=== PATIENT | female | born 1960 | race American Indian/Alaskan Native ===

== ENCOUNTER 2020-03-24 11:47 | Emergency (ER) | payer SELFPAY ==
--- NOTE | 2020-03-24 11:59 | Event Note ---
ED Screening Note Date of service: 03/24/20 Time: 11:55 ED Screening Note: 59-year-old -[place] female presents to the emergency room for insomnia x2 weeks and this morning she woke up with short left quadrant pain worse with deep breath. Past medical history of hypertension. No nausea no vomiting. Last seen at [facility]. This initial assessment/diagnostic orders/clinical plan/treatment(s) is/are subject to change based on patients health status, clinical progression and re- assessment by fellow clinical providers in the ED. Further treatment and workup at subsequent clinical providers discretion. Patient/guardian urged not to elope from the ED as their condition may be serious if not clinically assessed and managed. Initial orders include:
[2020-03-24 12:36] LABS: Bacteria,Urine 1+ /HPF (Negative); Bilirubin,Urine NEG (Negative); Blood,Urine MOD (Negative); Color,Urine Yellow (Yellow); Mucus,Urine FEW /HPF; Urobilinogen,Urine < 2.0 mg/dL (<2.0)
[2020-03-24 12:50] LABS: Basophils % (Auto) 0.6 % (0.0-1.8); Eosinophils % (Auto) 0.2 % (0.0-4.3); Hematocrit 39.9 % (30.3-42.9); Hemoglobin 13.4 gm/dl (10.1-14.3); Lymphocytes # (Auto) 1.6 K/mm3 (1.2-5.4); Lymphocytes % (Auto) 17.5 % (13.4-35.0); Mean Corpuscular HGB Conc 34 % (30-34); Mean Corpuscular Volume 87 fl (79-97); Monocytes # (Auto) 0.5 K/mm3 (0.0-0.8); Monocytes % (Auto) 6.1 % (0.0-7.3); Platelet Count 232 K/mm3 (140-440); Red Blood Count 4.57 M/mm3 (3.65-5.03); Red Cell Distribution Width 14.2 % (13.2-15.2)
[2020-03-24 13:27] LABS: Alanine Aminotransferase 13 units/L (7-56); Albumin 4.5 g/dL (3.9-5); BUN/Creatinine Ratio 13; Blood Urea Nitrogen 10 mg/dL (7-17); Calcium 9.5 mg/dL (8.4-10.2); Hemolysis Index 3
--- NOTE | 2020-03-24 16:27 | Cat Scan Report ---
CT ABDOMEN AND PELVIS WITH CONTRAST HISTORY: Left side abdominal pain with hematuria COMPARISON: None TECHNIQUE: Routine abdominal and pelvic CT exam performed following intravenous contrast administrat ion.. All CT scans at this location are performed using CT dose reduction for ALARA by means of autom ated exposure control. FINDINGS: CT ABDOMEN: Lung Bases: No significant abnormality. Liver: There is a 5.0 x 4.8 cm hypoattenuating mass versus fluid collection in the superolateral righ t hepatic lobe. Remainder the liver appears unremarkable. Biliary: No significant abnormality. Spleen: No significant abnormality. Unenlarged. Pancreas: No significant abnormality. Adrenals: No significant abnormality. Kidneys: No acute findings. Tiny simple cysts in the left renal cortex. Lymphatics: No lymphadenopathy. Vasculature: No significant abnormality. Bowel/Peritoneum: No significant abnormality. No free air. No free fluid. Normal appendix. CT PELVIC: : The uterus is surgically absent. Lymphatics: No lymphadenopathy. Osseous Structures: No aggressive appearing osseous lesions. There is moderate degenerative disc dise ase at L5-S1 in the lumbar spine. Additional Findings: None IMPRESSION: 1. Complex mass versus fluid collection in the superolateral right hepatic dome. Differential conside rations would include metastatic disease, primary hepatic neoplasm, and intrahepatic abscess. 2. No additional acute findings. Signer Name: Jhon Eldridge MD Signed: 03/24/2020 4:23 PM Workstation Name: [id number]
[2020-03-24] MEDS ORDERED: ACETAMINOPHEN 325 MG TAB PO ONE (18:20)
[2020-03-24] MEDS ORDERED: amLODIPine 5 MG TAB PO ONE (23:41)
--- NOTE | 2020-03-24 23:41 | Emergency Department Report ---
ED General Adult HPI - General Chief complaint: Abdominal Pain Stated complaint: SIDE PAIN; INSOMNIA PUI?: No Time Seen by Provider: 03/24/20 23:25 Source: patient, RN notes reviewed Mode of arrival: Ambulatory Limitations: No Limitations - History of Present Illness Initial comments: The patient was evaluated in the emergency department for symptoms described in the history of present illness. He/she was evaluated in the context of the global COVID-19 pandemic, which necessitated consideration that the patient might be at risk for infection with the virus that causes COVID-19. Institutional protocols and algorithms that pertain to the evaluation of patients at risk for COVID-19 are in a state of rapid change based on information released by regulatory bodies including the CDC and federal and state organizations. These policies and algorithms were followed during the patient's care in the emergency department. Please note that these policies, procedures and recommendations changed on a rapid basis. The patient is a 59-year-old female. She is not known to myself previously. She moved here from the [facility] approximately 1 month ago. She does not have a local primary care doctor. She has a history of hypertension, and distant history of hysterectomy. She presents to the ER today with a main complaint of nontraumatic left upper quadrant pain, which increases with deep inspiration and palpation. She denies headache, neck pain, exertional shortness of breath, vomiting, diaphoresis, loss of taste, loss of smell, dysuria, denies right-sided abdominal pain, and lower quadrant abdominal pain. She has not really taken anything for pain at this time. She states that she believes she has had a colonoscopy, although not recently. She is not had a Pap smear, as she has a history of hysterectomy. She also reports having had a mammogram in 2018. She denies fever, and unintentional weight loss. She also describes painless difficulty sleeping over the past 2 weeks. -: Gradual, days(s), week(s) Location: abdomen Radiation: non-radiation Severity scale (0 -10): 8 Quality: aching Consistency: intermittent Improves with: rest Worsens with: other (Deep inspiration) - Related Data Previous Rx's Medication Instructions Recorded Last Taken Type Acetaminophen [Non-Aspirin Extra 500 mg PO Q6HR PRN #30 tablet 03/25/20 Unknown Rx Strength] Albuterol Sulfate [Proair 90 mcg IH Q4HR PRN #2 aer.[email or web address] 03/25/20 Unknown Rx Respiclick] Amoxicillin [Trimox CAP] 1,000 mg PO Q8H #28 capsule 03/25/20 Unknown Rx Azithromycin [Zithromax TAB] 250 mg PO QDAY #4 tablet 03/25/20 Unknown Rx Ibuprofen [Motrin] 600 mg PO Q8H PRN #30 tablet 03/25/20 Unknown Rx Allergies Allergy/AdvReac Type Severity Reaction Status Date / Time Unable to Assess Allergy Verified 03/25/20 01:55 ED Review of Systems ROS: Stated complaint: SIDE PAIN; INSOMNIA Other details as noted in HPI Constitutional: denies: fever Eyes: denies: eye discharge ENT: denies: congestion Respiratory: see HPI. denies: cough Cardiovascular: denies: syncope Gastrointestinal: abdominal pain. denies: hematemesis, melena, hematochezia Genitourinary: denies: dysuria Musculoskeletal: back pain Neurological: weakness Hematological/Lymphatic: denies: easy bleeding ED Past Medical Hx - Social History Smoking Status: Never Smoker Substance Use Type: None - Medications Home Medications: Home Medications Medication Instructions Recorded Confirmed Last Taken Type Acetaminophen [Non-Aspirin Extra 500 mg PO Q6HR PRN #30 tablet 03/25/20 Unknown Rx Strength] Albuterol Sulfate [Proair 90 mcg IH Q4HR PRN #2 aer.pow.[email or web address] 03/25/20 Unknown Rx Respiclick] Amoxicillin [Trimox CAP] 1,000 mg PO Q8H #28 capsule 03/25/20 Unknown Rx Azithromycin [Zithromax TAB] 250 mg PO QDAY #4 tablet 03/25/20 Unknown Rx Ibuprofen [Motrin] 600 mg PO Q8H PRN #30 tablet 03/25/20 Unknown Rx ED Physical Exam - General Limitations: No Limitations General appearance: alert, in no apparent distress - Head Head exam: Present: atraumatic, normocephalic - Eye Eye exam: Present: normal appearance, EOMI. Absent: conjunctival injection, nystagmus - ENT ENT exam: Present: normal exam, normal orophraynx, mucous membranes moist, normal external ear exam - Neck Neck exam: Present: normal inspection, full ROM. Absent: tenderness, meningismus - Respiratory Respiratory exam: Present: normal lung sounds bilaterally. Absent: respiratory distress, wheezes, rales, rhonchi, stridor, decreased breath sounds - Cardiovascular Cardiovascular Exam: Present: regular rate, normal rhythm, normal heart sounds. Absent: bradycardia, tachycardia, irregular rhythm, systolic murmur, diastolic murmur, rubs, gallop - GI/Abdominal GI/Abdominal exam: Present: soft, normal bowel sounds. Absent: distended, tenderness, guarding, rebound, rigid, pulsatile mass - Extremities Exam Extremities exam: Present: normal inspection, full ROM, other (2+ pulses noted in the bilateral upper and lower extremities. There is no palpable cord. negative Homans sign. Muscular compartments are soft. The pelvis is stable.). Absent: pedal edema, calf tenderness - Back Exam Back exam: Present: normal inspection, full ROM. Absent: tenderness, CVA tenderness (R), CVA tenderness (L), paraspinal tenderness, vertebral tenderness - Neurological Exam Neurological exam: Present: alert, oriented X3, normal gait, other (No facial droop. Tongue midline. Extraocular movements intact bilaterally. Facial sensation intact to light touch in V1, V2, V3 distribution bilaterally. 5 and a 5 strength in 4 extremities. Sensation intact to light touch in 4 extremi ties.). Absent: motor sensory deficit - Psychiatric Psychiatric exam: Present: normal affect, normal mood - Skin Skin exam: Present: warm, dry, intact, normal color. Absent: rash ED Course Vital Signs 03/24/20 03/24/20 03/25/20 11:53 18:25 01:48 Temperature 98.8 F 98.9 F Pulse Rate 109 H 89 93 H Respiratory 18 16 17 Rate Blood Pressure 171/89 Blood Pressure 191/99 [191/99] Blood Pressure 167/103 [Right] O2 Sat by Pulse 97 100 98 Oximetry 03/25/20 01:57 Temperature Pulse Rate 93 H Respiratory Rate Blood Pressure 167/103 Blood Pressure [191/99] Blood Pressure [Right] O2 Sat by Pulse Oximetry - Reevaluation(s) Reevaluation #1: 03/25/20 00:17 Differential diagnosis, including but not limited to: Pneumonia, pulmonary embolism, pleurisy, malignancy, hypertension, noncompliance Assessment and plan: 59-year-old female who presents with a primary complaint of left upper quadrant pain that has pleuritic component to it. She is not currently tachycardic, tachypneic or hypoxic. She denies travel, surgery, oral contraceptive use and leg pain and leg swelling. A CT scan of the abdomen pelvis was obtained prior to my personal evaluation of this patient, demonstrated nonspecific lesion in the right upper quadrant/liver. The patient has no fever, chills, and there is no right upper quadrant pain, tenderness, rebound or guarding. Clinically, her examination and history not suggestive of hepatic abscess. Given potential concern for malignancy, and pleuritic left upper quadrant/left lateral/inferior thoracic pain, x-ray the chest will be obtained, EKG will be obtained, and we will send a D-dimer to risk ratified patient for pulmonary embolism. Assuming no acute pulmonary embolism is identified, either through D- dimer, or through objective imaging, patient will need to follow-up with an outpatient primary care doctor for nonspecific hepatic lesion. Elevated blood pressure reviewed and appreciated. We will start Norvasc and discharged with Norvasc. Hypertension is most likely chronic. EKG fairly unremarkable. 03/25/20 02:02 Reassessed. D-dimer elevated. CT scan of the chest suggest left lower lobe infiltrate/pneumonitis. No pulmonary embolism is identified. Patient walking with a steady gait. I discussed the patient's CT scan of the chest with the interpreting radiologist, Dr. Gsaton. He advises that it is his opinion that both CT scan of the abdomen pelvis, and CT scan of the chest demonstrate left lower lobe infiltrate/pneumonitis. There is persistently a lack of pain/tenderness in the right upper quadrant. Patient observed in this ER for hours without clinical decompensation. She is suitable for trial of oral outpatient antibiotic management. She states that she takes Norvasc, and does not require a refill. Patient will be treated with Tylenol, Motrin, amoxicillin, azithromycin. She will need to follow-up with an outpatient primary care doctor for repeat checkup/evaluation. I extensively and exhaustively counseled the patient on need to follow-up for incidental pulmonary nodule, and nonspecific hepatic abnormality. I specifically advised patient that close follow-up is necessary to exclude cancer, tumor, malignancy. I also discussed the importance of antihypertensive medication compliance. ED Medical Decision Making - Lab Data Result diagrams: 03/24/20 12:26 03/24/20 12:26 Vital Signs 03/24/20 03/24/20 11:53 18:25 Temperature 98.8 F Pulse Rate 109 H 89 Respiratory 18 16 Rate Blood Pressure 171/89 Blood Pressure 191/99 [191/99] O2 Sat by Pulse 97 100 Oximetry Lab Results 03/24/20 03/24/20 03/24/20 Range/Units 12:01 12:26 12:26 WBC 8.9 (4.5-11.0) K/mm3 RBC 4.57 (3.65-5.03) M/mm3 Hgb 13.4 (10.1-14.3) gm/dl Hct 39.9 (30.3-42.9) % MCV 87 (79-97) fl MCH 29 (28-32) pg MCHC 34 (30-34) % RDW 14.2 (13.2-15.2) % Plt Count 232 (140-440) K/mm3 Lymph % (Auto) 17.5 (13.4-35.0) % Avery % (Auto) 6.1 (0.0-7.3) % Eos % (Auto) 0.2 (0.0-4.3) % Baso % (Auto) 0.6 (0.0-1.8) % Lymph # (Auto) 1.6 (1.2-5.4) K/mm3 Avery # (Auto) 0.5 (0.0-0.8) K/mm3 Eos # (Auto) 0.0 (0.0-0.4) K/mm3 Baso # (Auto) 0.0 (0.0-0.1) K/mm3 Seg Neutrophils % 75.6 H (40.0-70.0) % Seg Neutrophils # 6.7 (1.8-7.7) K/mm3 Sodium 140 (137-145) mmol/L Potassium 4.3 (3.6-5.0) mmol/L Chloride 102.0 (98-107) mmol/L Carbon Dioxide 27 (22-30) mmol/L Anion Gap 15 mmol/L BUN 10 (7-17) mg/dL Creatinine 0.8 (0.6-1.2) mg/dL Estimated GFR > 60 ml/min BUN/Creatinine Ratio 13 % Glucose 99 (65-100) mg/dL POC Glucose 99 (70-105) mg/dL Calcium 9.5 (8.4-10.2) mg/dL Total Bilirubin 0.30 (0.1-1.2) mg/dL AST 15 (5-40) units/L ALT 13 (7-56) units/L Alkaline Phosphatase 67 (35-129) units/L Total Protein 7.5 (6.3-8.2) g/dL Albumin 4.5 (3.9-5) g/dL Albumin/Globulin Ratio 1.5 % Lipase (13-60) units/L Urine Color (Yellow) Urine Turbidity (Clear) Urine pH (5.0-7.0) Ur Specific Tracy (1.003-1.030) Urine Protein (Negative) mg/dL Urine Glucose (UA) (Negative) mg/dL Urine Ketones (Negative) mg/dL Urine Blood (Negative) Urine Nitrite (Negative) Urine Bilirubin (Negative) Urine Urobilinogen (<2.0) mg/dL Ur Leukocyte Esterase (Negative) Urine WBC (Auto) (0.0-6.0) /HPF Urine RBC (Auto) (0.0-6.0) /HPF U Epithel Cells (Auto) (0-13.0) /HPF Urine Bacteria (Auto) (Negative) /HPF Urine Mucus /HPF Urine Yeast (Budding) /HPF 03/24/20 03/24/20 Range/Units 12:26 Unknown WBC (4.5-11.0) K/mm3 RBC (3.65-5.03) M/mm3 Hgb (10.1-14.3) gm/dl Hct (30.3-42.9) % MCV (79-97) fl MCH (28-32) pg MCHC (30-34) % RDW (13.2-15.2) % Plt Count (140-440) K/mm3 Lymph % (Auto) (13.4-35.0) % Avery % (Auto) (0.0-7.3) % Eos % (Auto) (0.0-4.3) % Baso % (Auto) (0.0-1.8) % Lymph # (Auto) (1.2-5.4) K/mm3 Avery # (Auto) (0.0-0.8) K/mm3 Eos # (Auto) (0.0-0.4) K/mm3 Baso # (Auto) (0.0-0.1) K/mm3 Seg Neutrophils % (40.0-70.0) % Seg Neutrophils # (1.8-7.7) K/mm3 Sodium (137-145) mmol/L Potassium (3.6-5.0) mmol/L Chloride (98-107) mmol/L Carbon Dioxide (22-30) mmol/L Anion Gap mmol/L BUN (7-17) mg/dL Creatinine (0.6-1.2) mg/dL Estimated GFR ml/min BUN/Creatinine Ratio % Glucose (65-100) mg/dL POC Glucose (70-105) mg/dL Calcium (8.4-10.2) mg/dL Total Bilirubin (0.1-1.2) mg/dL AST (5-40) units/L ALT (7-56) units/L Alkaline Phosphatase (35-129) units/L Total Protein (6.3-8.2) g/dL Albumin (3.9-5) g/dL Albumin/Globulin Ratio % Lipase 30 (13-60) units/L Urine Color Yellow (Yellow) Urine Turbidity Clear (Clear) Urine pH 8.0 H (5.0-7.0) Ur Specific Tracy 1.017 (1.003-1.030) Urine Protein 30 mg/dl (Negative) mg/dL Urine Glucose (UA) Neg (Negative) mg/dL Urine Ketones Neg (Negative) mg/dL Urine Blood Mod (Negative) Urine Nitrite Neg (Negative) Urine Bilirubin Neg (Negative) Urine Urobilinogen < 2.0 (<2.0) mg/dL Ur Leukocyte Esterase Neg (Negative) Urine WBC (Auto) 5.0 (0.0-6.0) /HPF Urine RBC (Auto) 155.0 (0.0-6.0) /HPF U Epithel Cells (Auto) 2.0 (0-13.0) /HPF Urine Bacteria (Auto) 1+ (Negative) /HPF Urine Mucus Few /HPF Urine Yeast (Budding) 1+ /HPF - EKG Data -: EKG Interpreted by Me EKG shows normal: sinus rhythm Rate: normal - EKG Data When compared to previous EKG there are: previous EKG unavailable 03/25/20 00:13 Sinus rhythm, 84 bpm, normal axis, normal intervals, QTC 394 ms. Abnormal EKG. Not a STEMI. No prior for comparison. - Radiology Data Radiology results: pending, report reviewed, image reviewed TECHNIQUE: Routine abdominal and pelvic CT exam performed following intravenous contrast administration.. All CT scans at this location are performed using CT dose reduction for ALARA by means of automated exposure control. FINDINGS: CT ABDOMEN: Lung Bases: No significant abnormality. Liver: There is a 5.0 x 4.8 cm hypoattenuating mass versus fluid collection in the superolateral right hepatic lobe. Remainder the liver appears unremarkable. Biliary: No significant abnormality. Spleen: No significant abnormality. Unenlarged. Pancreas: No sign ificant abnormality. Adrenals: No significant abnormality. Kidneys: No acute findings. Tiny simple cysts in the left renal cortex. Lymphatics: No lymphadenopathy. Vasculature: No significant abnormality. Bowel/Peritoneum: No significant abnormality. No free air. No free fluid. Normal appendix. CT P ELVIC: : The uterus is surgically absent. Lymphatics: No lymphadenopathy. Osseous Structures: No aggressive appearing osseous lesions. There is moderate degenerative disc disease at L5-S1 in the lumbar spine. Additional Findings: None IMPRESSION: 1. Complex mass versus fluid collection in the superolateral right hepatic dome. Differential considerations would include metastatic disease, moris hollis hepatic neoplasm, and intrahepatic abscess. 2. No additional acute findings. Signer Name: Jhon Eldridge MD Signed: 03/24/2020 3:23 PM Workstation Name: [id number] CTA CHEST WITH IV CONTRAST INDICATION: Pleuritic chest pain, left thorax, elevated D-dimer CONTRAST: 100 cc Omnipaque 350 IV COMPARISON: Chest x-ray tonight, CT abdomen and pelvis 03/24/2020 Three-plane MIP reconstructions were produced. All CT scans at this location are performed using CT dose reduction for ALARA by means of automated exposure control. FINDINGS: No significant axillary or chest wall lesions are seen. No mediastinal or hilar masses are noted. Visualized portions of the upper abdomen again show the complex mass in the upper portion of the right lobe of the liver described on report yesterday. No pleural effusions are seen. No obvious endobronchial lesions are noted. No pneumothorax or pneumomediastinum are seen. Right lung field is clear. Mild patchy atelectasis and possible pneumonic infiltrate are seen in the lateral aspect of the left lower lobe and slightly in the lingula. This is similar to yesterday study. In the left upper lobe posterior laterally near the major fissure a noncalcified well-defined solid 4 mm pulmonary nodule is seen. No other nodules or masses are noted. The aorta shows no aneurysmal dilatation or evidence of dissection. Moderate opacification of the pulmonary arterial system was achieved. I do not see convincing evidence of pulmonary thromboembolism. IMPRESSION: 1. No convincing evidence of pulmonary thromboembolism 2. Possible pneumonitis in the left lower lobe 3. Left upper lobe soft tissue nodule. INCIDENTAL PULMONARY NODULE RECOMMENDATIONS Solid Nodule size* <6 mm -- Single or Multiple - Low Risk Patient: No routine follow-up - High Risk Patient: Optional CT at 12 months Solid Nodule size 6-8 mm -- Single - Low Risk Patient: CT at 6-12 months, then consider CT at 18-24 months - High Risk Patient: CT at 6-12 months, then CT at 18-24 months Solid Nodule size 6-8 mm -- Multiple - Low Risk Patient: CT at 3-6 months, then consider CT at 18-24 months - High Risk Patient: CT at 3-6 months, then CT at 18-24 months Solid Nodule size >8 mm -- Single - Low Risk or High Risk Patient: Consider CT at 3 months, PET/CT, or tissue sampling Solid Nodule size >8 mm -- Multiple - Low Risk Patient: CT at 3-6 months, then consider CT at 18-24 months - High Risk Patient: CT at 3-[address], [address] at 18-24 months Subsolid Nodule (Ground glass) <6 mm - No routine follow-up Subsolid Nodule (Ground glass) >=6 mm - CT at 6-12 months to confirm persistence, then CT every 2 years until 5 years Subsolid Nodule (Part solid) <6 mm - No routine follow-up Subsolid Nodule (Part solid) >=6 mm - CT at 3-6 months to confirm persistence. If unchanged and solid component remains <6mm, annual CT should be performed for 5 years. Subsolid Nodule (Multiple) <6 mm - CT at 3-6 months. If stable, consider CT at 2 and 4 years. Subsolid Nodule (Multiple) >=6 mm - CT at 3-6 months. Subsequent management based on the most suspicious nodule(s). Note These recommendations do not apply to lung cancer screening, patients with immunosuppression, or patients with known primary cancer. Note Newly detected indeterminate nodule in persons 35 years of age or older. Persons under the age of 35 should not receive follow-up unless there is a known primary cancer. Low Risk Patient -- minimal or absent history of smoking and of other known risk factors. High Risk Patient -- history of smoking or of other known risk factors. *Dimensions are average of long and short axes, rounded to the nearest millimeter. Based on 2017 Fleischner Society Guidelines found in Radiology 2017 284:228-243. [email or web address].[email or web address] Signer Name: Chicho Gaston MD Signed: 03/25/2020 12:51 AM Workstation Name: [email or web address] Critical care attestation.: If time is entered above; I have spent that time in minutes in the direct care of this critically ill patient, excluding procedure time. ED Disposition Clinical Impression: Elevated blood pressure reading, Pleuritic pain, Liver mass, Pulmonary infiltrate Disposition: - TO HOME OR SELFCARE Is pt being admited?: No Does the pt Need Aspirin: No Condition: Stable Instructions: Abdominal Pain (ED), Chest Pain (ED), Pleurodynia, Lung Mass, Hypertension, Adult Additional Instructions: Take the pain medication, cough medication and antibiotics as directed. Please continue current outpatient blood pressure medications. Long-term complications of hypertension and elevated blood pressure include stroke, heart attack, disability, paralysis, permanent loss of quality of life. CT scan of the chest suggested left lower lobe pneumonitis/pneumonia. Take the antibiotics, cough medication, pain medication, as directed. Avoid consumption of alcohol, tobacco and smoke products. Do not take metformin medication for the next 2 days, if patient takes this medication. CT scan of the chest also suggested nonspecific pulmonary nodule. Please have your primary care doctor contact the medical records department, to obtain copy of CT scan report, and follow-up on nonemergent incidental pulmonary nodule findings. This should be done within the next month, to ensure outpatient follow-up, to exclude cancer, tumor, malignancy. CT scan of the chest, and abdomen/pelvis demonstrated nonspecific lesion/mass in the liver. Patient will need to follow-up with a primary care doctor for this within the next month, to exclude cancer, tumor, malignancy. Please have your primary care doctor contact medical records department, to obtain CT scan report, and follow-up on nonemergent incidental findings. Please return to the emergency room right away with new pain, worsening pain, migration of pain, projectile vomiting, change in mental status, confusion, inability to tolerate liquid feeds, new, worsened or different symptoms not present on the initial emergency room evaluation. [facility] is a local primary care medical practice. Dr. Tanvir Rao is a local primary care doctor. Referrals: MONTRELL RAO MD [Staff Physician] - 3-5 Days [facility] [Provider Group] - 3-5 Days
--- NOTE | 2020-03-25 00:20 | XRay Report ---
CHEST 2 VIEWS [id number] INDICATION / CLINICAL INFORMATION: pleuritic pain COMPARISON: None available. FINDINGS: SUPPORT DEVICES: None. HEART / MEDIASTINUM: No significant abnormality. LUNGS / PLEURA: Minimal linear atelectasis versus scarring is seen in the left lateral base. No defin ite acute pneumonic infiltrates are seen. No pleural effusions are obvious. No pneumothorax. ADDITIONAL FINDINGS: No significant additional findings. IMPRESSION: No significant acute abnormality Signer Name: Chicho Gaston MD Signed: 03/25/2020 12:16 AM Workstation Name: [id number]
[2020-03-25 00:30] LABS: INR 1.11 (0.87-1.13)
[2020-03-25] MEDS ORDERED: SODIUM CHLORIDE 0.9% 250ML 250 ML IV ONE (00:57)
[2020-03-25] MEDS ORDERED: KETOROLAC 30 MG/1 ML INJ IV ONE (01:43)
[2020-03-25] MEDS ORDERED: amLODIPine 5 MG TAB ONE (01:53)
--- NOTE | 2020-03-25 01:55 | Cat Scan Report ---
CTA CHEST WITH IV CONTRAST INDICATION: Pleuritic chest pain, left thorax, elevated D-dimer CONTRAST: 100 cc Omnipaque 350 IV COMPARISON: Chest x-ray tonight, CT abdomen and pelvis 03/24/2020 Three-plane MIP reconstructions were produced. All CT scans at this location are performed using CT d ose reduction for ALARA by means of automated exposure control. FINDINGS: No significant axillary or chest wall lesions are seen. No mediastinal or hilar masses are noted. Visualized portions of the upper abdomen again show the complex mass in the upper portion of t he right lobe of the liver described on report yesterday. No pleural effusions are seen. No obvious e ndobronchial lesions are noted. No pneumothorax or pneumomediastinum are seen. Right lung field is clear. Mild patchy atelectasis and possible pneumonic infiltrate are seen in the lateral aspect of the left lower lobe and slightly in the lingula. This is similar to yesterday study . In the left upper lobe posterior laterally near the major fissure a noncalcified well-defined solid 4 mm pulmonary nodule is seen. No other nodules or masses are noted. The aorta shows no aneurysmal dilatation or evidence of dissection. Moderate opacification of the pulmonary arterial system was achieved. I do not see convincing evidenc e of pulmonary thromboembolism. IMPRESSION: 1. No convincing evidence of pulmonary thromboembolism 2. Possible pneumonitis in the left lower lobe 3. Left upper lobe soft tissue nodule. INCIDENTAL PULMONARY NODULE RECOMMENDATIONS Solid Nodule size* <6 mm -- Single or Multiple - Low Risk Patient: No routine follow-up - High Risk Patient: Optional CT at 12 months Solid Nodule size 6-8 mm -- Single - Low Risk Patient: CT at 6-12 months, then consider CT at 18-24 months - High Risk Patient: CT at 6-12 months, then CT at 18-24 months Solid Nodule size 6-8 mm -- Multiple - Low Risk Patient: CT at 3-6 months, then consider CT at 18-24 months - High Risk Patient: CT at 3-6 months, then CT at 18-24 months Solid Nodule size >8 mm -- Single - Low Risk or High Risk Patient: Consider CT at 3 months, PET/CT, or tissue sampling Solid Nodule size >8 mm -- Multiple - Low Risk Patient: CT at 3-6 months, then consider CT at 18-24 months - High Risk Patient: CT at 3-6 months, then CT at 18-24 months Subsolid Nodule (Ground glass) <6 mm - No routine follow-up Subsolid Nodule (Ground glass) >=6 mm - CT at 6-12 months to confirm persistence, then CT every 2 years until 5 years Subsolid Nodule (Part solid) <6 mm - No routine follow-up Subsolid Nodule (Part solid) >=6 mm - CT at 3-6 months to confirm persistence. If unchanged and solid component remains <6mm, annual CT s hould be performed for 5 years. Subsolid Nodule (Multiple) <6 mm - CT at 3-6 months. If stable, consider CT at 2 and 4 years. Subsolid Nodule (Multiple) >=6 mm - CT at 3-6 months. Subsequent management based on the most suspicious nodule(s). Note These recommendations do not apply to lung cancer screening, patients with immunosuppression, o r patients with known primary cancer. Note Newly detected indeterminate nodule in persons 35 years of age or older. Persons under the age of 35 should not receive follow-up unless there is a known primary cancer. Low Risk Patient -- minimal or absent history of smoking and of other known risk factors. High Risk Patient -- history of smoking or of other known risk factors. *Dimensions are average of long and short axes, rounded to the nearest millimeter. Based on 2017 Fleischner Society Guidelines found in Radiology 2017 284:228-243. https://doi.org/10.1 148/radiol.1477160758 Signer Name: Chicho Gaston MD Signed: 03/25/2020 1:51 AM Workstation Name: [email or web address]
[2020-03-25] MEDS ORDERED: AMOXICILLIN 500 MG CAP PO ONE (02:02)
[2020-03-25] MEDS ORDERED: AZITHROMYCIN 250 MG TAB PO ONE (02:02)
[2020-03-25 03:05] VITALS: BP 140/92
== END 2020-03-25 03:05 | disposition home or self-care (01) ==
LOC: ED 11:47
DX: R03.0 Elevated blood-pressure reading, without diagnosis of hypertension (principal); R07.81 Pleurodynia; R91.8 Other nonspecific abnormal finding of lung field; Z79.1 Long term (current) use of non-steroidal anti-inflammatories (NSAID); Z79.2 Long term (current) use of antibiotics
CPT/HCPCS: 36415; 71046; 71275; 74177; 80053; 81001; 82962; 83690; 85025; 85379; 85610; 96374; 99285; J1885; J7050; Q9967; 93005

== ENCOUNTER 2020-09-17 10:43 | Emergency (ER) | payer SELFPAY ==
--- NOTE | 2020-09-17 11:00 | Event Note ---
ED Screening Note ED Screening Note: Patient is a 60-year-old female presents emergency room complaints of shortness of breath for 2 months She states last night the shortness of breath got worse and that is why she reported to the emergency room today She states that she was not able to sleep because laying flat makes her shortness of breath worse She denies any fever, cough, nausea, vomiting, diarrhea Past medical history of hypertension, hypercholesteremia, borderline diabetes No allergies to medicines She is a never smoker This initial assessment/diagnostic orders/clinical plan/treatment(s) is/are subject to change based on patients health status, clinical progression and re- assessment by fellow clinical providers in the ED. Further treatment and workup at subsequent clinical providers discretion. Patient/guardian urged not to elope from the ED as their condition may be serious if not clinically assessed and managed. Initial orders include: Labs, EKG, x-ray
--- NOTE | 2020-09-17 11:36 | XRay Report ---
CHEST 2 VIEWS INDICATION / CLINICAL INFORMATION: Chest Pain. COMPARISON: 03/24/20. FINDINGS: SUPPORT DEVICES: None. HEART / MEDIASTINUM: The heart size is borderline with a left ventricular configuration. Pulmonary va sculature is normal. There is mild aortic tortuosity without aneurysm. LUNGS / PLEURA: No significant pulmonary or pleural abnormality. Minimal left basilar subsegmental pa renchymal disease has resolved. No pneumothorax. ADDITIONAL FINDINGS: No significant additional findings. IMPRESSION: No acute abnormality. Signer Name: Giovani Zamorano MD Signed: 09/17/2020 11:31 AM Workstation Name: [id number]
[2020-09-17 12:13] LABS: Basophils % (Auto) 0.6 % (0.0-1.8); Eosinophils # (Auto) 0.1 K/mm3 (0.0-0.4); Eosinophils % (Auto) 1.3 % (0.0-4.3); Hematocrit 39.2 % (30.3-42.9); Hemoglobin 13.2 gm/dl (10.1-14.3); Lymphocytes # (Auto) 1.7 K/mm3 (1.2-5.4); Mean Corpuscular HGB Conc 34 % (30-34); Mean Corpuscular Volume 88 fl (79-97); Monocytes # (Auto) 0.4 K/mm3 (0.0-0.8); Monocytes % (Auto) 7.8 % (0.0-7.3); Platelet Count 246 K/mm3 (140-440); Red Blood Count 4.43 M/mm3 (3.65-5.03); Red Cell Distribution Width 14.5 % (13.2-15.2)
[2020-09-17 12:34] LABS: Alanine Aminotransferase 14 units/L (7-56); Albumin 4.4 g/dL (3.9-5); BUN/Creatinine Ratio 11; Blood Urea Nitrogen 11 mg/dL (7-17); Calcium 9.2 mg/dL (8.4-10.2); Hemolysis Index 2
--- NOTE | 2020-09-17 13:23 | Emergency Department Report ---
ED Shortness of Breath HPI - General Chief Complaint: Dyspnea/Respdistress Stated Complaint: DIFFICULT BREATHING/ LACK OF APPETITE Time Seen by Provider: 09/17/20 10:59 Source: patient Mode of arrival: Ambulatory Limitations: No Limitations - History of Present Illness Initial Comments: 61-year-old female, history of hypertension, borderline diabetes, presents to ED with difficulty sleeping. Patient states she has been suffering from insomnia for a while. States she took Tylenol PM to help her sleep. Patient states last night, she would fall asleep for approximately 2 minutes and then wake up gasping for breath. Patient denies any cough, fever, chest pain, dyspnea on exertion, leg pain or swelling. Denies any history of anxiety. She denies any difficulty breathing currently. MD Complaint: shortness of breath -: Last night Severity: moderate Consistency: intermittent Improves With: nothing Worsens With: other (Falling asleep) Treatments Prior to Arrival: none - Related Data Previous Rx's Medication Instructions Recorded Last Taken Type Acetaminophen [Non-Aspirin Extra 500 mg PO Q6HR PRN #30 tablet 03/25/20 Unknown Rx Strength] Albuterol Sulfate [Proair 90 mcg IH Q4HR PRN #2 aer.pow.ba 03/25/20 Unknown Rx Respiclick] Amoxicillin [Trimox CAP] 1,000 mg PO Q8H #28 capsule 03/25/20 Unknown Rx Azithromycin [Zithromax TAB] 250 mg PO QDAY #4 tablet 03/25/20 Unknown Rx Ibuprofen [Motrin] 600 mg PO Q8H PRN #30 tablet 03/25/20 Unknown Rx Allergies Allergy/AdvReac Type Severity Reaction Status Date / Time No Known Allergies Allergy Unverified 09/17/20 10:53 ED Review of Systems ROS: Stated complaint: DIFFICULT BREATHING/ LACK OF APPETITE Other details as noted in HPI Comment: All other systems reviewed and negative Constitutional: denies: fever Respiratory: denies: cough, SOB with exertion Cardiovascular: denies: chest pain Musculoskeletal: other (Denies leg pain or swelling) ED Past Medical Hx - Past Medical History Previous Medical History?: Yes Hx Hypertension: Yes Hx Diabetes: Yes (PRE) Additional medical history: fibroids - Surgical History Past Surgical History?: Yes Additional Surgical History: FIBRIODS - Social History Smoking Status: Never Smoker - Medications Home Medications: Home Medications Medication Instructions Recorded Confirmed Last Taken Type Acetaminophen [Non-Aspirin Extra 500 mg PO Q6HR PRN #30 tablet 03/25/20 Unknown Rx Strength] Albuterol Sulfate [Proair 90 mcg IH Q4HR PRN #2 aer.pow.ba 03/25/20 Unknown Rx Respiclick] Amoxicillin [Trimox CAP] 1,000 mg PO Q8H #28 capsule 03/25/20 Unknown Rx Azithromycin [Zithromax TAB] 250 mg PO QDAY #4 tablet 03/25/20 Unknown Rx Ibuprofen [Motrin] 600 mg PO Q8H PRN #30 tablet 03/25/20 Unknown Rx ED Physical Exam - General Limitations: No Limitations General appearance: alert, in no apparent distress - Head Head exam: Present: atraumatic, normocephalic - Eye Eye exam: Present: normal appearance, EOMI - ENT ENT exam: Present: mucous membranes moist - Neck Neck exam: Present: normal inspection - Respiratory Respiratory exam: Present: normal lung sounds bilaterally. Absent: respiratory distress - Cardiovascular Cardiovascular Exam: Present: regular rate, normal rhythm - GI/Abdominal GI/Abdominal exam: Present: soft. Absent: distended, tenderness - Extremities Exam Extremities exam: Present: normal inspection. Absent: pedal edema, calf tenderness - Neurological Exam Neurological exam: Present: alert, oriented X3 - Psychiatric Psychiatric exam: Present: normal affect, normal mood - Skin Skin exam: Present: warm, dry, intact, normal color ED Course Vital Signs 09/17/20 09/17/20 09/17/20 10:55 12:28 12:30 Temperature 99.5 F Pulse Rate 88 68 66 Respiratory 18 13 14 Rate Blood Pressure 149/98 88/51 Blood Pressure [Left] O2 Sat by Pulse 99 100 100 Oximetry 09/17/20 09/17/20 12:46 14:07 Temperature 98.3 F Pulse Rate 64 82 Respiratory 12 16 Rate Blood Pressure 88/51 Blood Pressure 159/95 [Left] O2 Sat by Pulse 100 97 Oximetry ED Medical Decision Making - Lab Data Result diagrams: 09/17/20 11:11 09/17/20 11:11 - EKG Data -: EKG Interpreted by N[facility] EKG shows normal: sinus rhythm, axis, intervals, QRS complexes, ST-T waves Rate: normal - EKG Data Interpretation: no acute changes - Radiology Data Radiology results: report reviewed, image reviewed - Medical Decision Making 60 yo F presents to ED w/ complaint of insomnia and waking up from sleep gasping for breath. Workup is unremarkable, including labs, EKG, CXR. Vitals are stable. Patient is in no respiratory distress. Patient will be discharged home. Advised to f/u w/ PCP, return precautions given. - Differential Diagnosis Sleep apnea, anxiety, pulmonary edema Critical care attestation.: If time is entered above; I have spent that time in minutes in the direct care of this critically ill patient, excluding procedure time. ED Disposition Clinical Impression: Insomnia, Dyspnea Disposition: DC- TO HOME OR SELFCARE Is pt being admited?: No Condition: Stable Instructions: Shortness of Breath, Adult, [id number], Sleep Studies, Panic Attack, [id number], Sleep Apnea, [id number], Insomnia Referrals: PRIMARY CAREMD [Primary Care Provider] - 3-5 Days ANTOINETTE SHAFER MD [Staff Physician] - 3-5 Days [facility] [Provider Group] - 3-5 Days Time of Disposition: 13:22
[2020-09-17 14:08] VITALS: BP 159/95
--- NOTE | 2020-09-18 17:57 | Electrocardiograph Report ---
[facility] Test Date: 2020-09-17 Test Time: 11:04:07 Pat Name: VIKKI CACERES Department: Room: Gender: F Corporate Executive: BALJINDER : 1960 Requested By: PARISH TRUJILLO Order Number: [id number] Reading MD: Cathy Solares Measurements Intervals [facility] [place] Rate: 75 P: 42 NE: 165 QRS: 5 QRSD: 80 T: 8 QT: 369 QTc: 412 Interpretive Statements Sinus rhythm Low voltage, precordial leads No previous ECG available for comparison Electronically Signed On 09-18-2020 17:57:22 EDT by Cathy Solares
== END 2020-09-17 14:08 | disposition home or self-care (01) ==
LOC: ED 10:43
DX: G47.00 Insomnia, unspecified (principal); R06.00 Dyspnea, unspecified; I10 Essential (primary) hypertension; E11.9 Type 2 diabetes mellitus without complications; Z79.899 Other long term (current) drug therapy; Z98.890 Other specified postprocedural states
CPT/HCPCS: 36415; 71046; 80053; 83880; 84484; 85025; 93005; 99283